=== PATIENT | female | born 1960 | race Caucasian/White ===

== ENCOUNTER 2023-02-10 15:09 | Emergency (ER) | payer SELFPAY ==
[2023-02-10] MEDS: Lidocaine 1% 10 ML MDV INJECT ONE (19:26)
== END 2023-02-10 16:35 | disposition short-term general hospital (02) ==
LOC: VM.ED 15:09
DX: S60.112A Contusion of left thumb with damage to nail, initial encounter (principal); I10 Essential (primary) hypertension; W26.0XXA Contact with knife, initial encounter
CPT/HCPCS: 11740; 99284-25